=== PATIENT | female | born 1935 | race Caucasian/White ===

== ENCOUNTER 2016-11-20 22:14 | Emergency (ER) | payer MEDICARE ==
[~2016-11-20 22:14] MED LIST: HYDROCODON-ACE1 EAC2 PO; LASIX20 MG PO; LEVAQUIN500 MG PO; NEURONTIN300 MG PO; PROTONIX40 MG PO; REQUIP0.5 MG PO; SPIRIVA18 MCG IH; SYMBICORT 16060 PUFF INH; TOPROL XL25 MG PO; VENTOLIN HFA8 GM INH
[2016-11-20 23:07] LABS: ARTERIAL BLD GAS O2 SATURATION 95.7 % (94-98); ARTERIAL BLOOD GAS BASE EXCESS 13.7 mmol/L (-2.0-3.0); ARTERIAL BLOOD GAS HCO3 41.9 mmol/L (22-26); ARTERIAL BLOOD GAS pH 7.34 (7.35-7.45)
[2016-11-20 23:22] LABS: BLOOD UREA NITROGEN 12 mg/dL (7-18); CALCIUM 9.3 mg/dL (8.7-10.7); CREATININE 0.5 mg/dL (0.6-1.3); GLUCOSE,RANDOM 103 mg/dL (70-99); POTASSIUM 4.9 mmol/L (3.5-5.1); SODIUM 137 mmol/L (136-145)
[2016-11-20 23:24] LABS: HEMATOCRIT 39.9 % (34-45); HEMOGLOBIN 11.4 g/dL (11.2-15.7); MEAN CORPUSCULAR HGB CONC 28.6 g/dL (32.0-36.0); MEAN CORPUSCULAR VOLUME 105.3 fL (79-95); PLATELET COUNT 226 x10_3/uL (182-369); RED BLOOD COUNT 3.79 x10_6/uL (3.9-5.2); WHITE BLOOD COUNT 4.8 x10_3/uL (4.0-10.0)
[2016-11-20 23:32] LABS: CARBON DIOXIDE 38 mmol/L (21-32)
[2016-11-21 01:05] LABS: ARTERIAL BLD GAS O2 SATURATION 93.4 % (94-98); ARTERIAL BLOOD GAS BASE EXCESS 12.7 mmol/L (-2.0-3.0); ARTERIAL BLOOD GAS HCO3 41.1 mmol/L (22-26); ARTERIAL BLOOD GAS pH 7.32 (7.35-7.45)
[2016-11-21 01:08] LABS: ARTERIAL BLOOD GAS PCO2 82.5 mmHg (32-45)
[2016-11-21 02:35] LABS: ARTERIAL BLD GAS O2 SATURATION 98.7 % (94-98); ARTERIAL BLOOD GAS BASE EXCESS 13.4 mmol/L (-2.0-3.0); ARTERIAL BLOOD GAS pH 7.31 (7.35-7.45)
[2016-11-21 02:36] LABS: ARTERIAL BLOOD GAS PCO2 85.2 mmHg (32-45)
== END 2016-11-21 03:45 | disposition short-term general hospital (02) ==
LOC: ER 22:14 → MS 11-21 00:57 → ER 11-21 00:57
PROVIDERS: General Practice
DX: E87.2 Acidosis (principal); J44.0 Chronic obstructive pulmonary disease with (acute) lower respiratory infection; J18.9 Pneumonia, unspecified organism; J84.9 Interstitial pulmonary disease, unspecified; R06.2 Wheezing; R00.0 Tachycardia, unspecified; R64 Cachexia; G62.9 Polyneuropathy, unspecified; F17.210 Nicotine dependence, cigarettes, uncomplicated; Z88.8 Allergy status to other drugs, medicaments and biological substances; Z99.81 Dependence on supplemental oxygen; Z79.899 Other long term (current) drug therapy
CPT/HCPCS: 36415; 36600; 71010; 71260; 80048; 82803; 83605; 83880; 85025; 87040; 94660; 96361; 96365; 96367; 99070; 99284; 99285-25; J7040; Q9967